=== PATIENT | female | born 1965 | race Caucasian/White ===

== ENCOUNTER 2019-09-13 11:50 | Emergency (ER) | payer BC ==
[~2019-09-13] VITALS: Ht 157.5 cm; Wt 68.5 kg
--- NOTE | 2019-09-13 12:52 | NUR ---
Patient discharged to home in stable condition. Written and verbal after care instructions given. Patient verbalizes understanding of instructions. Stressed follow up or return to ER for worsening s/s.
== END 2019-09-13 12:54 | disposition home or self-care (01) ==
LOC: ER 11:50
DX: R10.31 Right lower quadrant pain (principal); K63.89 Other specified diseases of intestine; K42.9 Umbilical hernia without obstruction or gangrene
CPT/HCPCS: A4663